=== PATIENT | female | born 1955 | race Caucasian/White ===

== ENCOUNTER 2018-11-30 09:04 | Day surgery (SDC) | payer BC ==
[~2018-11-30 09:04] MED LIST: ACETAMINOPHEN 1,000 MG/100 ML BTL IV ONE
[2018-11-30] MEDS ORDERED: LIDOCAINE 2% MDV (20MG/ML) 20ML VIAL IV ONE (09:05)
[2018-11-30] MEDS ORDERED: PROPOFOL 10 MG/ML VIAL IV ONE (09:05)
[2018-11-30] MEDS ORDERED: SEVOFLURANE 250 ML INH ONE (09:05)
[2018-11-30] MEDS ORDERED: GLYCOPYRROLATE 0.2 MG/ML ML IV ONE (09:05)
[2018-11-30] MEDS ORDERED: KETAMINE HCL 100MG/1ML VIAL INJ ONE (09:05)
[2018-11-30] MEDS ORDERED: HYDROCODONE/APAP 5/325MG TABLET PO ONE (09:05)
[2018-11-30] MEDS ORDERED: KETOROLAC 30 MG/ML VIAL IVP ONE (09:05)
[2018-11-30] MEDS ORDERED: BUPIVACAINE 0.25% W/EPI MPF 30ML VIAL IVP ONE (09:05)
--- NOTE | 2018-12-01 08:20 | Operative Note ---
DATE OF SURGERY: 11/30/2018 Surgeon: Gurpreet Garcia DO PREOPERATIVE DIAGNOSIS: Torn medial meniscus of the right knee. POSTOPERATIVE DIAGNOSES: 1. Torn medial meniscus of the right knee. 2. Osteoarthritis of the right knee. OPERATION: 1. Arthroscopic partial medial meniscectomy, right knee. 2. Arthroscopic chondroplasty of the medial femoral condyle, right knee. DESCRIPTION OF PROCEDURE: This 63-year-old female was taken to the operating room and placed in the supine position on the operating room table. A general anesthetic was administered. The right lower extremity was elevated, exsanguinated, and the tourniquet inflated to 300 mmHg. Arthroscopic knee biswas applied. Right knee prepped with Hibiclens and draped in the usual sterile fashion. 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 The rotating shaver was placed through an inferomedial portal and chondroplasty was performed to restore stability to the articular cartilage of the patella. The medial compartment was entered, and there was an area on the medial femoral condyle just below the meniscal rest that demonstrated a grade 4 lesion. This lesion was approximately 5-7 mm in greatest diameter with fragmentation around the periphery. This was smoothed and contoured with the rotating shaver and grade 2 changes noted throughout the entire remainder of the entire weightbearing surface of the medial femoral condyle. This also demonstrated loose fragments of articular cartilage and this was smoothed with a rotating shaver. The patient demonstrated a tear of the posterior horn of the medial meniscus extending from about the posterior attachment to the 1- to 2-o'clock position. This was not a meniscal root tear. Utilizing the basket forceps and rotating shaver, we resected torn fragments of the meniscus and further smoothed and contoured the meniscus to a stable rim. The intracondylar notch was examined and found to be normal. The lateral compartment was entered, and probing of the lateral compartment did not reveal any pathology. The joint was then copiously irrigated and suctioned. All areas were reexamined. No additional findings were present. The joint was suctioned. The instruments were removed. The portals infiltrated with 0.25% Marcaine with epinephrine. Sterile dressings applied. Tourniquet and knee biswas released, and the patient taken to the recovery room in satisfactory condition. GROSS PATHOLOGY: This patient demonstrated advanced grade 2 changes of the patella, grade 2 changes noted on most of the medial femoral condyle except for the small grade 4 lesion below the meniscal rest which was about 5-7 mm. The ACL was seen to be normal. A complex tear of the medial meniscus present as described above. CC: DO WAYNE Ramos
== END 2018-11-30 12:45 | disposition home or self-care (01) ==
LOC: SUR 09:04
PROVIDERS: ATTEND Orthopaedic Surgery
DX: S83.231A Complex tear of medial meniscus, current injury, right knee, initial encounter (principal); M17.11 Unilateral primary osteoarthritis, right knee; I10 Essential (primary) hypertension; E78.00 Pure hypercholesterolemia, unspecified
CPT/HCPCS: J1885; J3490